=== PATIENT | female | born 1990 | race Caucasian/White ===

== ENCOUNTER → 2019-12-03 | Outpatient (CLI) | payer OTHER ==
[~2019-12-03] MED LIST: Evening Primro1 EACH PO; IBUP800 PO; Verotin-Gr Cap1 EACH PO
== END ==
LOC: LAB SHORT 13:15 → LAB SRC 13:15
DX: L02.413 Cutaneous abscess of right upper limb (principal)
CPT/HCPCS: 87070; 87075; 87077; 87147; 87186; 87205

== ENCOUNTER 2020-04-01 14:50 | Emergency (ER) | payer OTHER ==
[~2020-04-01] VITALS: Ht 160 cm; Wt 56.7 kg
[2020-04-01 16:04] LABS: BASOPHILS ABSOLUTE AUTO 0.06 K/mm3 (0.00-0.23); BASOPHILS PERCENT AUTO 1 % (0-2); EOSINOPHILS PERCENT AUTO 0 % (0-6); Hematocrit 39.3 % (33.0-51.0); Hemoglobin 12.8 g/dL (11.5-16.0); IMMATURE GRAN ABSOLUTE AUTO 0.21 K/mm3 (0.00-0.10); IMMATURE GRAN PERCENT AUTO 2 % (0-1); LYMPHOCYTES ABSOLUTE AUTO 1.28 K/mm3 (0.84-5.20); LYMPHOCYTES PERCENT AUTO 10 % (21-46); MONOCYTES ABSOLUTE AUTO 1.41 K/mm3 (0.16-1.47); MONOCYTES PERCENT AUTO 11 % (4-13); Mean Corpuscular HGB 28.4 pg (26.0-34.0); Mean Corpuscular HGB Conc 32.6 g/dL (31.5-36.5); Mean Corpuscular Volume 87 fL (80-100); Mean Platelet Volume 11.2 fL (9.1-12.4); NEUTROPHILS ABSOLUTE AUTO 10.09 K/mm3 (1.96-9.15); NEUTROPHILS PERCENT AUTO 77 % (41-73); Platelet Count 122 K/mm3 (150-400); RDW Coefficient Variation 14.5 % (11.7-14.2); Red Blood Cell Count 4.51 M/mm3 (3.80-5.20); White Blood Cell Count 13.05 K/mm3 (4.00-11.30)
[2020-04-01 16:15] LABS: Alanine Aminotransfer (ALT/SGP 59 U/L (12-78); Albumin, Blood 2.6 g/dL (3.4-5.0); Albumin/Globulin Ratio 0.5 (0.8-1.8); Alk Phos 511 U/L (50-136); Anion Gap 7 mmol/L (6-16); Aspartate Aminotrans (AST/SGOT 61 U/L (12-37); Bilirubin, Total 1.6 mg/dL (0.1-1.0); Blood Urea Nitrogen 9 mg/dL (8-24); Bun/Creatinine Ratio 15.6 (12.0-20.0); CO2, Blood 26 mmol/L (21-32); Calcium, Blood 8.7 mg/dL (8.5-10.1); Chloride, Blood 97 mmol/L (98-108); Creatinine, Blood 0.58 mg/dL (0.40-1.00); Globulin, Blood 5.2 g/dL (2.2-4.0); Glomerular Filtration Rate >60 (60-); Glucose, Blood 111 mg/dL (70-99); Potassium, Blood 4.1 mmol/L (3.5-5.5); Sodium, Blood 130 mmol/L (136-145); Total Protein, Blood 7.8 g/dL (6.4-8.2)
== END 2020-04-01 16:35 | disposition left against medical advice (07) ==
LOC: ER 14:50
PROVIDERS: Emergency Medicine
DX: R50.9 Fever, unspecified (principal); R51.9 Headache, unspecified; R06.00 Dyspnea, unspecified; Z53.21 Procedure and treatment not carried out due to patient leaving prior to being seen by health care provider
CPT/HCPCS: 36415; 71046; 80053; 83605; 83690; 85025; 87040; 87077; 87147; 87186

== ENCOUNTER 2020-04-01 17:26 | Emergency (ER) | payer OTHER ==
[~2020-04-01] VITALS: Ht 160 cm; Wt 56.7 kg
[2020-04-01 18:26] LABS: Source, Urine Clean Catch
[2020-04-01 18:29] LABS: Blood, Urine 3+ (Neg); Glucose Qualitative, Urine Neg (Neg); Ketones, Urine 1+ (Neg); Leukocyte Esterase, Urine 2+ (Neg); Nitrite, Urine Pos (Neg); Protein, Urine 2+ (Neg); Specific Gravity, Urine 1.015 (1.003-1.022); Urobilinogen, Urine 3+ (Normal)
[2020-04-01 18:37] LABS: Appearance, Urine Cloudy (Clear); Bilirubin, Urine 2+ (Neg); Color, Urine Amber (P-Yellow)
[2020-04-01 18:38] LABS: Bacteria Many /hpf; Squamous Epithelial Cells Few /hpf (Few); Transitional Epithelial Cells Few /hpf (0-Rare)
[2020-04-01 19:49] LABS: U Amphetamine Screen DETECTED; U Barbituate Screen Not Detected; U Benzodiazapine Screen Not Detected; U Buprenorphine Screen Not Detected; U Cannabinoids Screen DETECTED; U Cocaine Screen Not Detected; U Methadone Screen Not Detected; U Methamphetamine Screen DETECTED; U Opiates Screen DETECTED; U Oxycodone Screen Not Detected; U Phencyclidine Screen Not Detected; U Propoxyphene Screen Not Detected
== END 2020-04-01 19:47 | disposition left against medical advice (07) ==
LOC: ER 17:26
PROVIDERS: Emergency Medicine
DX: R50.9 Fever, unspecified (principal); R51.9 Headache, unspecified; R53.83 Other fatigue; M25.561 Pain in right knee; F17.210 Nicotine dependence, cigarettes, uncomplicated; Z53.20 Procedure and treatment not carried out because of patient's decision for unspecified reasons; Z79.899 Other long term (current) drug therapy
CPT/HCPCS: 81001; 81025; 83605; 84484; 87040; 87077; 87086; 87186; 93005; 93010; 99283

== ENCOUNTER 2020-04-02 17:30 | Inpatient (IN) | payer OTHER ==
[~2020-04-02] VITALS: Ht 160 cm; Wt 60.8 kg
[2020-04-02 19:02] LABS: BASOPHILS PERCENT AUTO 1 % (0-2); EOSINOPHILS ABSOLUTE AUTO 0.01 K/mm3 (0.00-0.68); EOSINOPHILS PERCENT AUTO 0 % (0-6); Hematocrit 33.3 % (33.0-51.0); Hemoglobin 10.8 g/dL (11.5-16.0); IMMATURE GRAN ABSOLUTE AUTO 0.12 K/mm3 (0.00-0.10); IMMATURE GRAN PERCENT AUTO 1 % (0-1); LYMPHOCYTES ABSOLUTE AUTO 1.23 K/mm3 (0.84-5.20); LYMPHOCYTES PERCENT AUTO 9 % (21-46); MONOCYTES ABSOLUTE AUTO 0.66 K/mm3 (0.16-1.47); MONOCYTES PERCENT AUTO 5 % (4-13); Mean Corpuscular HGB 28.7 pg (26.0-34.0); Mean Corpuscular HGB Conc 32.4 g/dL (31.5-36.5); Mean Corpuscular Volume 89 fL (80-100); Mean Platelet Volume 10.9 fL (9.1-12.4); NEUTROPHILS ABSOLUTE AUTO 11.07 K/mm3 (1.96-9.15); NEUTROPHILS PERCENT AUTO 84 % (41-73); Platelet Count 120 K/mm3 (150-400); RDW Coefficient Variation 14.6 % (11.7-14.2); RDW Standard Deviation 47.1 fL (35.1-46.3); Red Blood Cell Count 3.76 M/mm3 (3.80-5.20); White Blood Cell Count 13.19 K/mm3 (4.00-11.30)
[2020-04-02 19:14] LABS: International Normalized Ratio 1.1; Prothrombin Time Results 11.7 Sec (9.7-11.5)
[2020-04-02 19:36] LABS: Source, Urine Catheter
[2020-04-02 19:47] LABS: Alanine Aminotransfer (ALT/SGP 47 U/L (12-78); Albumin, Blood 2.1 g/dL (3.4-5.0); Albumin/Globulin Ratio 0.5 (0.8-1.8); Alk Phos 422 U/L (50-136); Anion Gap 8 mmol/L (6-16); Aspartate Aminotrans (AST/SGOT 52 U/L (12-37); Bilirubin, Total 1.1 mg/dL (0.1-1.0); Blood Urea Nitrogen 6 mg/dL (8-24); CO2, Blood 26 mmol/L (21-32); Calcium, Blood 8.4 mg/dL (8.5-10.1); Chloride, Blood 99 mmol/L (98-108); Creatinine, Blood 0.55 mg/dL (0.40-1.00); Globulin, Blood 4.4 g/dL (2.2-4.0); Glomerular Filtration Rate >60 (60-); Glucose, Blood 179 mg/dL (70-99); Potassium, Blood 3.3 mmol/L (3.5-5.5); Sodium, Blood 133 mmol/L (136-145); Total Protein, Blood 6.5 g/dL (6.4-8.2)
[2020-04-02 19:55] LABS: Appearance, Urine Clear (Clear); Bilirubin, Urine Neg (Neg); Blood, Urine 2+ (Neg); Color, Urine Amber (P-Yellow); Glucose Qualitative, Urine Neg (Neg); Ketones, Urine Neg (Neg); Leukocyte Esterase, Urine 1+ (Neg); Nitrite, Urine Neg (Neg); Protein, Urine 1+ (Neg); Specific Gravity, Urine 1.005 (1.003-1.022); Urobilinogen, Urine 1+ (Normal); pH, Urine 6.5 (5.0-8.0)
[2020-04-02 20:14] LABS: Amorphous Light (0-Heavy); Bacteria Few /hpf; Mucus Light (0-Heavy); Squamous Epithelial Cells Mod /hpf (Few)
[2020-04-02 20:55] LABS: Appearance, CSF Clear (Clear); Color, CSF No Color (No Color); RBC Count, CSF 103 /mm3 (0-0); WBC Count, CSF 2 /mm3 (0-5)
[2020-04-02 21:03] LABS: Appearance, CSF Clear (Clear); Color, CSF No Color (No Color); RBC Count, CSF 2 /mm3 (0-0); WBC Count, CSF 3 /mm3 (0-5)
[2020-04-02 21:07] LABS: Glucose, CSF 67 mg/dL (40-70)
[2020-04-02 22:06] LABS: Cryptococcus Neoformans/Gattii Not Detected (NOT DETECT); Enterovirus Not Detected (NOT DETECT); Escherichia Coli K1 Not Detected (NOT DETECT); Haemophilus Influenza Not Detected (NOT DETECT); Herpes Simplex Virus 1 Not Detected (NOT DETECT); Herpes Simplex Virus 2 Not Detected (NOT DETECT); Human Herpesvirus 6 Not Detected (NOT DETECT); Human Parechovirus Not Detected (NOT DETECT); Listeria Monocytogenes Not Detected (NOT DETECT); Neisseria Meningitidis Not Detected (NOT DETECT); Streptococcus Agalactiae Not Detected (NOT DETECT); Streptococcus Pneumoniae Not Detected (NOT DETECT); Varicella Zoster Virus Not Detected (NOT DETECT)
[2020-04-03 06:29] LABS: BASOPHILS ABSOLUTE AUTO 0.04 K/mm3 (0.00-0.23); BASOPHILS PERCENT AUTO 0 % (0-2); EOSINOPHILS ABSOLUTE AUTO 0.05 K/mm3 (0.00-0.68); EOSINOPHILS PERCENT AUTO 0 % (0-6); Hematocrit 29.7 % (33.0-51.0); Hemoglobin 9.4 g/dL (11.5-16.0); IMMATURE GRAN ABSOLUTE AUTO 0.09 K/mm3 (0.00-0.10); IMMATURE GRAN PERCENT AUTO 1 % (0-1); LYMPHOCYTES ABSOLUTE AUTO 1.69 K/mm3 (0.84-5.20); LYMPHOCYTES PERCENT AUTO 14 % (21-46); MONOCYTES ABSOLUTE AUTO 1.21 K/mm3 (0.16-1.47); MONOCYTES PERCENT AUTO 10 % (4-13); Mean Corpuscular HGB 28.2 pg (26.0-34.0); Mean Corpuscular HGB Conc 31.6 g/dL (31.5-36.5); Mean Corpuscular Volume 89 fL (80-100); Mean Platelet Volume 11.1 fL (9.1-12.4); NEUTROPHILS ABSOLUTE AUTO 8.64 K/mm3 (1.96-9.15); NEUTROPHILS PERCENT AUTO 74 % (41-73); Platelet Count 114 K/mm3 (150-400); RDW Coefficient Variation 14.8 % (11.7-14.2); RDW Standard Deviation 48.7 fL (35.1-46.3); Red Blood Cell Count 3.33 M/mm3 (3.80-5.20); White Blood Cell Count 11.72 K/mm3 (4.00-11.30)
[2020-04-03 07:44] LABS: Alanine Aminotransfer (ALT/SGP 52 U/L (12-78); Albumin, Blood 1.6 g/dL (3.4-5.0); Albumin/Globulin Ratio 0.4 (0.8-1.8); Alk Phos 399 U/L (50-136); Aspartate Aminotrans (AST/SGOT 70 U/L (12-37); Bilirubin, Total 0.9 mg/dL (0.1-1.0); Blood Urea Nitrogen 6 mg/dL (8-24); Bun/Creatinine Ratio 14.8 (12.0-20.0); CO2, Blood 22 mmol/L (21-32); Calcium, Blood 7.6 mg/dL (8.5-10.1); Chloride, Blood 114 mmol/L (98-108); Creatinine, Blood 0.41 mg/dL (0.40-1.00); Globulin, Blood 3.9 g/dL (2.2-4.0); Glomerular Filtration Rate >60 (60-); Glucose, Blood 108 mg/dL (70-99); Potassium, Blood 3.4 mmol/L (3.5-5.5); Total Protein, Blood 5.5 g/dL (6.4-8.2)
[2020-04-03 07:46] LABS: Anion Gap 7 mmol/L (6-16); Sodium, Blood 143 mmol/L (136-145)
[2020-04-03 14:12] LABS: Vancomycin, Trough 10.4 ug/mL (5.0-10.0)
--- NOTE | 2020-04-03 14:54 | NUR ---
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 SECURITY WAS CALLED S/O WAS ASKED TO LEAVE THE PREMESIS, S/O REFUSED AND STS "IF I LEAVE SHE IS LEAVING TOO" S/O DOES NOT LEAVE AND IS OK'D TO STAY
--- NOTE | 2020-04-03 15:00 | NUR ---
This RN was down in the central monitoring room, I knew that we placed this patient in PCU 3 specifically because we wanted to watch her and her significant other closely due to some questionalbe behavior in the Emergency Room. I asked the remote monitoring staff to turn on the monitor to PCU 3. About 10 minutes after the monitor was turned on the remote monitoring staff noticed something on the patients significant other's gateorade bottle. I asked her to zoom in and I could see the patients boyfriend had a transdermal needle taped to the outside of the gateorade bottle. I immediately notified the charge nurse vera and security. I told security what I had seen and told them we did not want the sig other to visit anymore because of his behavior. I also told the charge nurse what I had seen and told her security was on their way.
--- NOTE | 2020-04-03 15:24 | NUR ---
S/O WAS NOTED TO HAVE SYRINGES TAPPED TO WATER BOTTLES, WHEN STAFF AND SECURITY WENT TO ROOM TO ADDRESS THIS S/O REMOVED THE SYRINGES FROM BOTTLES AND PLACED THEM UP THE SLEEVE OF HIS SWEATSHIRT. STAFF ENTERED THE ROOM S/O WAS NOTED TO HAVE SLID ITEM INTO POCKETS OF PANTS FROM HIS SWEATSHIRT. S/O BEGINS TELLING PT "THEY WANT ME TO LEAVE DO YOU WANT TO STAY HERE?" PT IS EDUCATED THOROUGHLY BY CORRESPONDENCE SPECIALIST JENNYFER THAT LEAVING COULD RESULT IN . PT MAKES THE DECISION TO LEAVE AMA. IV IS REMOVED BY CORRESPONDENCE SPECIALIST. ALL OF THIS ACTIVITY FROM WITNESSED ON CAMERA BY DIETER CLINICAL COORDINATOR AND SAKSHI THE BUREAU CHIEF. S/O BEGINS THREATENING STAFF WITH HOUSEHOLD COOK FOR ASKING HIM TO LEAVE. PT WAS EDCUATED NUMEROUS TIMES THAT WE WISH FOR HER TO STAY SHE IS VERY SICK, PT STS THAT SHE WISHED TO LEAVE AMA DESPITE THE RISKS OF . S/O WALKS INTO [facility] AND BEGINS SHOUTING "GET ME A WHEELCHAIR IN HERE" MOMENTS AFTER SECURITY NOTIFIED HIM THAT THEY WOULD BE GETTING THE PT A WHEELCHAIR, THIS RN REMINDS S/O THAT A WHEELCHAIR IS ON THE WAY HE WAS TOLD A FEW SECONDS PRIOR, S/O DOES NOT SPEAK AND RETURNS TO ROOM. IV REMOVED AND PRESSURE DRESSED. PT TO WHEELCHAIR AND IS TAKING OUT BY S/O WITH SECURITY FOLLOWING. S/O AGAIN THREATENING STAFF WITH HIS ASSEMBLER LAY UPS. AMA FORM WAS SIGNED
[2020-04-06 04:07] LABS: HIV SCREEN 4TH GENERATION WRFX Non Reactive (Non Reactive)
[2020-04-06 12:07] LABS: HBSAG SCREEN Negative (Negative); HEP A AB, IGM Negative (Negative); HEP B CORE AB, TOT Negative (Negative); HEP C VIRUS AB >11.0 (0.0-0.9)
== END 2020-04-03 15:24 | disposition left against medical advice (07) | DRG 872 ==
LOC: ER 17:30 → ERHOLD 22:18 → PCU 04-03 13:04
PROVIDERS: Emergency Medicine; Physician Assistant; ADMIT Hospitalist
PROC: 009U3ZX Drainage of Spinal Canal, Percutaneous Approach, Diagnostic (ICD-10-PCS; principal; 2020-04-02)
DX: A41.01 Sepsis due to Methicillin susceptible Staphylococcus aureus (principal); N39.0 Urinary tract infection, site not specified; A41.51 Sepsis due to Escherichia coli [E. coli]; A41.81 Sepsis due to Enterococcus; A40.9 Streptococcal sepsis, unspecified; R65.20 Severe sepsis without septic shock; D64.9 Anemia, unspecified; D69.6 Thrombocytopenia, unspecified; E87.6 Hypokalemia; R79.89 Other specified abnormal findings of blood chemistry; F19.90 Other psychoactive substance use, unspecified, uncomplicated; F17.210 Nicotine dependence, cigarettes, uncomplicated; Z53.29 Procedure and treatment not carried out because of patient's decision for other reasons
CPT/HCPCS: 36415; 62270; 76705; 80053; 80202; 81001; 82945; 83605; 84157; 84703; 85025; 85610; 85730; 86704; 86708; 86803; 87040; 87070; 87077; 87086; 87186; 87205; 87340; 87389; 87483; 89051; 93005; 93010; 96365; 96365-59; 96366; 96367-59; 96375; 96375-59; 96376; 99285-25; A9270; G0008; J0696; J1885; J2060; J2185; J3370; J7030; J7040; Q2038